=== PATIENT | female | born 1950 | race Two or more races ===

== ENCOUNTER 2024-05-17 08:11 | Emergency (ER) | payer OTHER ==
[~2024-05-17] VITALS: Ht 165.1 cm; Wt 85.0 kg
--- NOTE | 2024-05-17 09:16 | ED.PDOC ---
HPI (NEURO) HPI Comments This is a pleasant 73-year-old female with a history of diabetes hypertension who presents for a mechanical fall. When she sustained a hematoma to the forehead after falling in her garage s/p missing a step. Denies persistent nausea Denies vomiting Denies family history of brain issues persistent headaches Denies taking any blood thinner medication Denies vision/hearing changes Denies focal loss of strength/sensation or changes in speech Chief Complaint: Fall Injury Time Seen by MD: 08:57 Reviewed Notes: Nurses Notes, Medications, Allergies Information Source: Patient Mode of Arrival: EMS Family History Family History: Reviewed,noncontributory to illness Social History Smoker: Non-Smoker Alcohol: Denies ETOH Use Drugs: Denies Drug Use All Other Systems: Reviewed and Negative (Per HPI) Physical Exam General Appearance: No Apparent Distress, Normal HEENT: Head (Hematoma to the right frontal lobe. TTP), Normal ENT Inspection, PERRL/EOMI Neck: Full Range of Motion, Non-Tender, Normal, Normal Inspection Respiratory: Chest Non-Tender, Lungs Clear, No Accessory Muscle Use, No Respiratory Distress, Normal Breath Sounds Cardiovascular: No Edema, No JVD, No Murmur, No Gallop, Normal Peripheral Pulses, Regular Rate/Rhythm Breast Exam: Deferred Gastrointestinal: No Organomegaly, Non Tender, No Pulsatile Mass, Normal Bowel Sounds, Soft Genitalia: Deferred Pelvic: Deferred Rectal: Deferred Extremities: No calf tenderness, Normal capillary refill, Normal inspection, Normal range of motion, Non-tender, No pedal edema Musculoskeletal : Apperance: Normal Neurologic: Alert, data steward II-XII nml as Tested, No Motor Deficits, Normal Affect, Normal Mood, No Sensory Deficits, Other (romberg neg) Cerebellar Function: Normal Reflexes: Normal Skin: Dry, Normal Color, Warm Lymphatic: No Adenopathy Was a procedure done? Was a procedure done?: No Images 1 - mild echymosis. hematoma. TTP. Differential Diagnosis (SZ) Headache: Cluster, Migraine, Closed Head Injury, Other (fracture) X-Ray, Labs, Meds, VS Vital Signs Date Time Temp Pulse Resp B/P (MAP) Pulse Ox O2 Delivery O2 Flow Rate FiO2 05/17/24 09:28 98.8 108 18 165/100 (121) 95 98.8 05/17/24 09:28 108 18 95 Room Air 05/17/24 08:22 98.8 108 18 165/100 (214) 58 PATIENT: VÍCTOR PIEDRA EACCT: [id number]: [id number] : 1950 LOC: ER ROOM / BED: / AGE / SEX: 73 / F ADM STATUS: REG ER SERVICE 0923 ORDERING PHYSICIAN: SANIA MARTINEZ NP PROCEDURE(s): FAC2C - MAXILLOFACIAL WITHOUT REASON: fall/hematoma to right frontal lobe ORDER NUMBER(s): [id number], ACCESSION NUMBER(s): [id number] CLINICAL INDICATION: 73 years old, Female; fall/hematoma to right frontal lobe. TECHNIQUE: Noncontrast CT of the facial bones was performed. Sagittal and coronal reformatted images are provided. COMPARISON: None CT Dose: CTDI volume is 66.97 mGy. Dose-length product is 1343.32 mGy*cm FINDINGS: No fracture or dislocation. The nasal bone is intact. The orbits are symmetric intraorbital contents intact. Temporomandibular joints are symmetric. The pterygoid plates are intact. There is right frontal scalp and periorbital soft tissue swelling. Several nonenlarged bilateral cervical lymph nodes at all jet stations. IMPRESSION: 1. No acute fracture. 2. Right frontal scalp and periorbital soft tissue swelling. All CT scans at this medical facility are performed using dose modulation techniques as appropriate to a performed exam including the following: Automated exposure control was utilized; adjustment of the MA and/or KV according to patient size; and use of iterative reconstruction technique. ATED BY: JUAN M SERNA MD DICTATED DATE/TIME: 05/17/241004 SIGNED BY: JUAN M SERNA MD SIGNED DATE/TIME: 05/17/241004 CC: X-Ray, Labs, Meds, VS Comment The patient suffered a minor closed head injury. The patient had a computed tomography of their head without any evidence of acute intracranial abnormality as per radiology. The patient is neurologically intact by exam and is able to ambulate without difficulty. A complete examination does not reveal any other related injury at this time. The patient is not currently utilizing any anticoagulants. The patient is advised to use tylenol as needed for pain. The patient is instructed to follow up their primary care physician as needed or return to ER if vomiting or worsening headache occurs. The patient was counseled in regards to the diagnosis and management of the condition and verbalized understanding of this. Patient is stable for discharge at this time. External notes reviewed. Test results and diagnostic imaging interpreted. All diagnostic findings, discharge care, education and instructions provided Follow-up with PCP in 2 to 3 days Patient verbalized understanding and agreed to treatment plan Vital signs stable, afebrile, no acute distress noted Patient ambulatory with strong steady gait Advised to return precautions for any new or worsening symptoms, return to ER immediately for re-evaluation Patient is aware that the purpose of this visit was for an acute medical emergency requiring emergent stabilization. Chronic conditions, including malignancies have not been ruled out. Patient is instructed to follow up with PCP as directed and discharge instructions for continued care and workup. If unable to arrange follow-up, patient is to return to the emergency department for reassessment. Patient (parent or legal guardian if applicable) was given verbal and written discharge instructions and acknowledges understanding. Time of 1ST Reevaluation: 09:25 Reevaluation 1ST: Improved Patient Education/Counseling: Diagnosis, Treatment Family Education/Counseling: Diagnosis, Treatment Departure 1 Departure Time of Disposition: 10:27 Impression: Primary Impression: Hematoma of frontal scalp Qualified Codes: S00.03XA - Contusion of scalp, initial encounter Additional Impression: Fall Qualified Codes: W19.XXXA - Unspecified fall, initial encounter Disposition: HOME / SELF CARE / HOMELESS Condition: Stable Discharged With: Self Critical Care Note Critical Care Time?: No Stability Stability form required: No Heart Score Heart Score: Heart Score Response (Comments) Value History N/A 0 EKG N/A 0 Age N/A 0 Risk Factors N/A 0 Troponin N/A 0 Total 0 SANIA MARTINEZ NP May 17, 2024 09:16
[2024-05-17 09:28] VITALS: BP 165/100; PULSE 108; RESP 18; TEMP 98.8; O2SAT 95
--- NOTE | 2024-05-17 09:56 | DVH ---
EXAM: CT HEAD WITHOUT CONTRAST INDICATION: fall/hematoma to right frontal lobe TECHNIQUE: CT of the head without intravenous contrast. Coronal and sagittal reformatted images are submitted. Radiation Dose : 1. Head: CT Dose: CTDI volume is 66.97 mGy. Dose-length product is 2402.08 mGy*cm The dose indicators for CT are the volume Computed Tomography (CT) Dose Index (CTDIvol) and the Dose Length Product (DLP), and are measured in units of mGy and mGy-cm, respectively. These indicators are not patient dose, but values generated from the CT scanner acquisition factors. The report includes radiation exposure data for exposures received during this examination. All CT scans at this medical facility are performed using dose modulation techniques as appropriate to a performed exam including the following: Automated exposure control was utilized; adjustment of the MA and/or KV according to patient size; and use of iterative reconstruction technique. COMPARISON: None FINDINGS: There is no evidence of acute intracranial hemorrhage, extra-axial collection, mass effect, midline s hift, herniation or hydrocephalus. The ventricles, sulci and cisterns are age appropriate. The trevizo-white differentiation is intact. The visualized paranasal sinuses and mastoid air cells are clear. No depressed calvarial fracture. Right frontal scalp soft tissue swelling. IMPRESSION: 1. No evidence of acute intracranial abnormality. 2. Right frontal scalp swelling.
--- NOTE | 2024-05-17 10:08 | DVH ---
CLINICAL INDICATION: 73 years old, Female; fall/hematoma to right frontal lobe. TECHNIQUE: Noncontrast CT of the facial bones was performed. Sagittal and coronal reformatted images are provided. COMPARISON: None CT Dose: CTDI volume is 66.97 mGy. Dose-length product is 1343.32 mGy*cm FINDINGS: No fracture or dislocation. The nasal bone is intact. The orbits are symmetric intraorbital contents intact. Temporomandibular joints are symmetric. The pterygoid plates are intact. There is right frontal scalp and periorbital soft tissue swelling. Several nonenlarged bilateral cervical lymph nodes at all jet stations. IMPRESSION: 1. No acute fracture. 2. Right frontal scalp and periorbital soft tissue swelling. All CT scans at this medical facility are performed using dose modulation techniques as appropriate t o a performed exam including the following: Automated exposure control was utilized; adjustment of th e MA and/or KV according to patient size; and use of iterative reconstruction technique.
== END 2024-05-17 10:29 | disposition home or self-care (01) ==
LOC: ER 08:11
DX: S00.03XA Contusion of scalp, initial encounter (principal); E11.9 Type 2 diabetes mellitus without complications; I10 Essential (primary) hypertension; W18.39XA Other fall on same level, initial encounter; Y93.89 Activity, other specified; Y92.89 Other specified places as the place of occurrence of the external cause; Y99.8 Other external cause status
CPT/HCPCS: 70450; 70486